=== PATIENT | female | born 1985 | race Caucasian/White ===

== ENCOUNTER 2021-02-28 14:11 | Emergency (ER) | payer OTHER ==
[~2021-02-28] VITALS: Ht 165.1 cm; Wt 113.4 kg
[~2021-02-28 14:11] MED LIST: ALBUTEROL SULFAT2 MG PO; AZITHROMYCIN 2250 MG PO; BUSPIRONE HCL10 MG PO; CLEOCIN HCL150 MG PO; DIFLUCAN150 MG PO; HYDROCHLOROTH12.5 M1 PO; IBUPROFEN 800800 MG PO; LAMISIL AT15 GM TP; LISINOPRIL-HCT1 EAC2 PO; LISINOPRIL20 MG PO; NASACORT10.8 ML NS; NEBULIZER MISCELL; NOHOMEMEDICATIONS; PREDNISONE 10 M10 M1 PO; PREDNISONE 10 M10 MG PO; PREDNISONE 20 M20 M1 PO; PULMICORT0.25 MG/3 INH; PULMICORT0.5 MG/21 INH; SINGULAIR 10 MG10 M1 PO; TRAZODONE 150150 M1 PO; VENTOLIN HFA 1818 GM INH; ZESTORETIC 20-1 EACH PO; ZOLOFT25 MG PO; ZPAK PO
[2021-02-28 14:21] VITALS: BP 187/107
[2021-02-28] MEDS ORDERED: PROAIR HFA8.5 GM INH (14:25)
== END 2021-02-28 15:13 | disposition left against medical advice (07) ==
LOC: M.ERS 14:11
DX: R06.02 Shortness of breath (principal); Z53.21 Procedure and treatment not carried out due to patient leaving prior to being seen by health care provider